=== PATIENT | female | born 1955 | race Hispanic/Latino ===

== ENCOUNTER → 2019-04-29 | Outpatient (CLI) | payer OTHER, MEDICARE ==
[~2019-04-29] MED LIST: ASPI-1197 PO; CALC500T13 PO; EMBREL INJ; LEFL10TA15 PO; LEVO125T11 PO; LOSA100T58 PO; NAPR500T6 PO
== END | disposition home or self-care (01) ==
LOC: SHCH 09:06
PROVIDERS: ATTEND Internal Medicine Cardiovascular Disease
DX: R06.00 Dyspnea, unspecified (principal)
CPT/HCPCS: 93306; 93356

== ENCOUNTER → 2019-05-03 | Outpatient (CLI) | payer OTHER, MEDICARE ==
[~2019-05-03] VITALS: Ht 149.9 cm; Wt 79.4 kg
[~2019-05-03] MED LIST changes: +REGADENOSON 0.4 MG/5 ML PF SYG IVP SCH
== END | disposition home or self-care (01) ==
LOC: SHCH 09:19
PROVIDERS: ATTEND Internal Medicine Cardiovascular Disease
DX: R06.00 Dyspnea, unspecified (principal); I25.89 Other forms of chronic ischemic heart disease
CPT/HCPCS: 78452; 93017; 96374; A9500 ×2; J2785

== ENCOUNTER 2019-07-03 10:00 | Inpatient (IN) | payer OTHER, MEDICARE ==
[~2019-07-03] VITALS: Ht 143.5 cm; Wt 77.7 kg
[~2019-07-03 10:00] MED LIST changes: -ASPI-1197 PO; -CALC500T13 PO; -EMBREL INJ; -LEFL10TA15 PO; -LEVO125T11 PO; -NAPR500T6 PO; -REGADENOSON 0.4 MG/5 ML PF SYG IVP SCH
[2019-07-05 14:58] VITALS: BP 122/52
[2019-07-05] MEDS ORDERED: OMEP40CA13 PO (15:15)
[2019-07-05] MEDS ORDERED: LENA10CA PO (15:15)
[2019-07-05] MEDS ORDERED: POTA-79 PO (15:15)
[2019-07-05] MEDS ORDERED: LEVO100T12 PO (15:15)
[2019-07-05] MEDS ORDERED: ACYC400T PO (15:15)
[2019-07-05] MEDS ORDERED: CARV3.12 PO (15:15)
[2019-07-05] MEDS ORDERED: ATOR10TA69 PO (15:15)
[2019-07-05] MEDS ORDERED: FURO40TA5 PO (15:15)
[2019-07-08] VITALS (22 sets, daily range): BP systolic 102–165; BP diastolic 43–71
[2019-07-08] MEDS: CEFAZOLIN SODIUM 1 GM VIAL IVP SCH ×4 (08:30→19:10)
[2019-07-08] MEDS ORDERED: LACTATED RINGERS 1000ML 1,000 ML IV ONE (08:34)
[2019-07-08] MEDS ORDERED: CEFAZOLIN SODIUM 1 GM VIAL ONE (12:25)
[2019-07-08] MEDS ORDERED: LIDOCAINE PF 2% 5ML ABBOJECT ONE (13:41)
[2019-07-08] MEDS ORDERED: KETAMINE 50MG/ML SYRINGE 50 MG/ML DISP.SYRIN IV ONE (13:41)
[2019-07-08] MEDS ORDERED: SUCCINYLCHOLINE CHLORIDE 20 MG/ML 10 ML VIAL ONE (13:41)
[2019-07-08] MEDS ORDERED: PROPOFOL 10 MG/ML 20ML VIAL IV ONE (13:41)
[2019-07-08] MEDS ORDERED: ROPIVACAINE 0.5% 5MG/ML 30ML IJ ONE (13:43)
[2019-07-08] MEDS ORDERED: MIDAZOLAM HCL 1 MG/ML 2ML VIAL ONE (13:44)
[2019-07-08] MEDS ORDERED: ROCURONIUM 10MG/1ML SYR 10 MG/ML ML ONE (14:06)
[2019-07-08] MEDS ORDERED: GLYCOPYRROLATE 1 MG/5 ML SYRINGE ONE (14:32)
[2019-07-08] MEDS ORDERED: FENTANYL CITRATE PF 50 MCG/1 ML 2ML VIAL ONE (15:39)
[2019-07-08] MEDS ORDERED: NEOSTIGMINE 5MG/5ML SYR IV ONE (17:51)
[2019-07-08] MEDS ORDERED: ONDANSETRON HCL 4 MG/2 ML VIAL ONE (17:51)
[2019-07-08] MEDS ORDERED: POTASSIUM CHLORIDE 20 MEQ ERTAB PO PRN (18:15)
[2019-07-08] MEDS ORDERED: POTASSIUM CHLORIDE 10% ELIXIR 20 MEQ/15 ML UDCUP PO PRN (18:15)
[2019-07-08] MEDS ORDERED: KETOROLAC TROMETHAMINE 15MG/ML IV PRN (18:15)
[2019-07-08] MEDS ORDERED: LIDOCAINE HCL-MPF 1% 2ML VIAL IV PRN (18:15)
[2019-07-08] MEDS ORDERED: POTASSIUM CHLORIDE 20MEQ/100ML 100 ML IV PRN (18:15)
[2019-07-08] MEDS ORDERED: TEMAZEPAM 15 MG CAPSULE PO PRN (18:15)
[2019-07-08] MEDS ORDERED: PROMETHAZINE HCL 25 MG/ML 1ML AMPULE IM PRN (18:15)
[2019-07-08] MEDS ORDERED: DiphenhydrAMINE HCL 50 MG/ML VIAL IVP PRN (18:15)
[2019-07-08] MEDS ORDERED: FERROUS FUMARATE 324 MG TABLET PO PRN (18:15)
[2019-07-08] MEDS ORDERED: OXYCODONE HCL 5 MG TAB PO PRN (18:15)
[2019-07-08] MEDS ORDERED: DIPHENHYDRAMINE HCL 25 MG CAPSULE PO PRN (18:15)
[2019-07-08] MEDS ORDERED: TRAMADOL HCL 50 MG TABLET PO PRN (18:15)
--- NOTE | 2019-07-08 19:15 | NUR ---
POST OP PATIENT ARRIVED TO ROOM 326 VIA BED AND WAS AAOX3 BUT DROWSY. DRESSING TO LEFT HIP WAS DRY AND INTACT HEMOVAC WAS IN PLACE WITH SANGUINOUS DRAINAGE NOTED. PATIENT HAD NO COMPLAINTS OR QUESTIONS AT THIS TIME.
[2019-07-08] MEDS: CARVEDILOL 3.125 MG TABLET PO SCH (21:21)
[2019-07-08] MEDS: SODIUM CHLORIDE 0.9% 1000ML 1,000 ML IV SCH (21:21)
[2019-07-08] MEDS: PREGABALIN 25 MG CAP PO SCH (21:21)
[2019-07-08] MEDS: PANTOPRAZOLE SODIUM 40 MG TABLET.DR PO SCH (21:21)
[2019-07-08] MEDS: ACYCLOVIR 200 MG CAPSULE PO SCH (21:21)
[2019-07-08] MEDS: CELECOXIB 200 MG CAP PO SCH (21:22)
[2019-07-08] MEDS: ACETAMINOPHEN EXTRA STRENGTH 500 MG TABLET PO SCH (21:23)
[2019-07-08] MEDS: OXYCODONE HCL 5 MG TAB PO PRN (21:23)
--- NOTE | 2019-07-08 23:00 | NUR ---
ACTIVITY PATIENT ASSISTED TO EDGE OF BED TO DANGLE LEGS PER PROTOCOL. PATIENT TOLERATED WELL AND WAS THEN ASSISTED BACK TO BED.
[2019-07-08] MEDS ORDERED: HYDROMORPHONE HCL 2 MG/ML VIAL IVP PRN (23:30)
[2019-07-09] VITALS (7 sets, daily range): BP systolic 115–161; BP diastolic 45–70
[2019-07-09] MEDS: OXYCODONE HCL 5 MG TAB PO PRN ×2 (01:19→09:19)
[2019-07-09] MEDS: ACETAMINOPHEN EXTRA STRENGTH 500 MG TABLET PO SCH ×3 (01:19→17:35)
[2019-07-09] MEDS ORDERED: HYDROMORPHONE 1 MG/1 ML AMP ONE ×2 (02:08→04:29)
[2019-07-09] MEDS: CEFAZOLIN SODIUM 1 GM VIAL IVP SCH (02:29)
[2019-07-09] MEDS: SODIUM CHLORIDE 0.9% 1000ML 1,000 ML IV SCH ×2 (04:13→10:23)
[2019-07-09 04:22] LABS: HEMATOCRIT 31.2 % (36-48); MEAN CORPUSCULAR HEMOGLOBIN 28.1 pg (27.0-33.0); MEAN CORPUSCULAR HGB CONC 32.7 g/dL (32.0-36.0); RED BLOOD CELL COUNT(AUTO) 3.63 MIL/uL (4.00-5.50); RED CELL DISTRIBUTION WIDTH 15.9 % (11.0-15.5)
[2019-07-09 04:40] LABS: CREATININE 0.9 mg/dL (0.5-1.5); POTASSIUM 3.9 mmol/L (3.5-5.1)
[2019-07-09] MEDS: LEVOTHYROXINE 100 MCG TABLET PO SCH (06:18)
[2019-07-09] MEDS: CELECOXIB 200 MG CAP PO SCH ×2 (09:11→22:39)
[2019-07-09] MEDS: ACYCLOVIR 200 MG CAPSULE PO SCH ×2 (09:11→22:39)
[2019-07-09] MEDS: PREGABALIN 25 MG CAP PO SCH ×2 (09:12→22:39)
[2019-07-09] MEDS: PANTOPRAZOLE SODIUM 40 MG TABLET.DR PO SCH ×2 (09:12→22:39)
[2019-07-09] MEDS: LOSARTAN 100 MG TABLET PO SCH (09:13)
[2019-07-09] MEDS: ATORVASTATIN CALCIUM 10 MG TABLET PO SCH (09:14)
[2019-07-09] MEDS: CARVEDILOL 3.125 MG TABLET PO SCH ×2 (09:15→22:39)
[2019-07-09] MEDS: POTASSIUM CHLORIDE 20 MEQ ERTAB PO SCH (09:15)
[2019-07-09] MEDS: FAMOTIDINE 20MG TAB 20 MG TAB PO SCH (09:15)
[2019-07-09] MEDS: CALCIUM CARBONATE 500 MG TABLET PO PRN (09:15)
[2019-07-09] MEDS: FUROSEMIDE 40 MG TABLET PO SCH (09:16)
[2019-07-09] MEDS: POLYETHYLENE GLYCOL 3350 17 GM POWD.PACK PO SCH (09:16)
[2019-07-09] MEDS: HEPARIN SODIUM 5000UNIT/ML 1ML VIAL SQ SCH ×2 (09:17→22:43)
--- NOTE | 2019-07-09 13:29 | NUR ---
DC PLAN VISITED WITH PATIENT. PATIENT LIVES WITH DAUGHTER. INDEPENDENT ABLE TO PERFORM ADL'S. PATIENT HAS NO SERVICES. WALKER AND BEDSIDE COMMODE AT HOME. SAID SHE IS TRYING TO GET DAUGHTER TO FIND A SMALLER WALKER BECAUSE SHE HAD ONE IN THE PAST AND GAVE IT TO HER SISTER. SHE LIKED THAT SIZE BETTER. GAVE CONSENT FOR [facility]. INFO SENT. SPOKE TO ELIAN SAID PATIENT IS ACCEPTED. LET NURSE KNOW. Addendum: 07/09/19 at 1332 by OFE MENDEZ RN CM Amended: Links added.
[2019-07-10] MEDS: ACETAMINOPHEN EXTRA STRENGTH 500 MG TABLET PO SCH ×3 (00:50→18:15)
[2019-07-10 04:00] VITALS: BP 132/51
[2019-07-10 04:32] LABS: HEMATOCRIT 27.2 % (36-48); MEAN CORPUSCULAR HEMOGLOBIN 28.3 pg (27.0-33.0); MEAN CORPUSCULAR HGB CONC 32.7 g/dL (32.0-36.0); MEAN CORPUSCULAR VOLUME 86.3 fL (79-99); RED BLOOD CELL COUNT(AUTO) 3.15 MIL/uL (4.00-5.50); RED CELL DISTRIBUTION WIDTH 16.2 % (11.0-15.5); WHITE BLOOD COUNT (AUTO) 4.7 K/uL (4.8-10.8)
[2019-07-10 04:46] LABS: CREATININE 0.8 mg/dL (0.5-1.5); POTASSIUM 3.7 mmol/L (3.5-5.1)
[2019-07-10] MEDS: CALCIUM CARBONATE 500 MG TABLET PO PRN ×2 (05:47→16:32)
[2019-07-10] MEDS: LEVOTHYROXINE 100 MCG TABLET PO SCH (05:47)
[2019-07-10 08:18] VITALS: BP 109/49
[2019-07-10] MEDS: POLYETHYLENE GLYCOL 3350 17 GM POWD.PACK PO SCH (08:31)
[2019-07-10] MEDS: ATORVASTATIN CALCIUM 10 MG TABLET PO SCH (08:31)
[2019-07-10] MEDS: HEPARIN SODIUM 5000UNIT/ML 1ML VIAL SQ SCH (08:31)
[2019-07-10] MEDS: ACYCLOVIR 200 MG CAPSULE PO SCH (08:31)
[2019-07-10] MEDS: FAMOTIDINE 20MG TAB 20 MG TAB PO SCH (08:33)
[2019-07-10] MEDS: FUROSEMIDE 40 MG TABLET PO SCH (08:33)
[2019-07-10] MEDS: PANTOPRAZOLE SODIUM 40 MG TABLET.DR PO SCH (08:33)
[2019-07-10] MEDS: POTASSIUM CHLORIDE 20 MEQ ERTAB PO SCH (08:33)
[2019-07-10] MEDS: LOSARTAN 100 MG TABLET PO SCH (08:33)
[2019-07-10] MEDS: CELECOXIB 200 MG CAP PO SCH (08:34)
[2019-07-10] MEDS: PREGABALIN 25 MG CAP PO SCH (08:34)
[2019-07-10] MEDS: CARVEDILOL 3.125 MG TABLET PO SCH (08:34)
[2019-07-10 11:20] VITALS: BP 157/50
[2019-07-10] MEDS ORDERED: ASPI-1005 PO (15:56)
[2019-07-10] MEDS ORDERED: HYDR-4457 PO (15:56)
[2019-07-10 16:52] VITALS: BP 137/57
--- NOTE | 2019-07-10 17:46 | NUR ---
DISCHARGE INSTRUCTIONS GIVEN AND EXPLAINED UTILIZING TEACH BACK METHOD, PT VERBALIZED UNDERSTANDING. DISCHARGE TO [facility]. [phone] REPORT GIVEN TO ONEAL SYED LVN. FOLLOW-UP APPOINTMENT WITH ON 07/31/19@ 8:30 A.M. IF YOU HAVE ANY QUESTIONS PLEASE CALL HIS OFFICE AT [phone] CALL 911 OR GO EMERGENCY ROOM IF YOU HAVE ANY CHEST PAIN/DISCOMFORT, SHORTNESS OF BREATH/DIFFICILTY BREATHING OR NEEDED. ACTIVITY: AMBULATE INSTRUCTED UP TOLERATED EXERCISE PROGRAM DIET: REGULAR DRESSING CHANGE: DAILY DRESSING CHANGE IF WOUND IS OOZING. CLEAN WOUND WITH BETADINE EVERY TIME DRESSING IS CHANGED. GAIT: GAIT TRAINING WITH WALKER OR CRUTCHES; WEIGHT BEARING TOLERATED QUADRICEP EXERCISE: QUADRICEP STRENGTH EXERCISES EXTREMITY ELEVATION: KEEP OPERATED EXTREMITY ELEVATED WHEN SEATED OR IN BED. DRESSING CHANGED PER MD ORDERS. EXPLAINED PROCEDURE OF CHANGING DRESSING, PT VERBALIZED UNDERSTANDING. REMOVED OLD DRESSING. OLD DRESSING W MINIMAL DRAINAGE. REMOVED HEMOVAC PER MD. INCISION DRY AND INTACT, NO REDNESS OR TENDERNESS. PAINTED BETADINE, COVERED WITH 4X4 GAUZE AND SECURED WITH MEDIPORE TAPE.
[2019-07-10] MEDS ORDERED: BISACODYL 5 MG TABLET.DR PO PRN (18:15)
--- NOTE | 2019-07-10 19:45 | NUR ---
DISCHARGE DISCHARGE HOME VIA WHEELCHAIR WITH DAUGHTER
[2019-07-11] MEDS ORDERED: BISACODYL 10 MG SUPP.RECT RC PRN (18:15)
== END 2019-07-10 19:45 | disposition home health service (06) | DRG 464 ==
LOC: EDSTATUS 10:00 → DAHIP 07-08 07:36 → 3DH 07-08 20:31
PROVIDERS: ADMIT Orthopaedic Surgery; ATTEND Orthopaedic Surgery
PROC: 3E0T3BZ Introduction of Anesthetic Agent into Peripheral Nerves and Plexi, Percutaneous Approach (ICD-10-PCS; 2019-07-08)
PROC: 0QS904Z Reposition Left Femoral Shaft with Internal Fixation Device, Open Approach (ICD-10-PCS; principal; 2019-07-08 13:43)
PROC: 0QU Lower Bones, Supplement (ICD-10-PCS; 2019-07-08 13:43)
PROC: 0SPB0JZ Removal of Synthetic Substitute from Left Hip Joint, Open Approach (ICD-10-PCS; 2019-07-08 13:43)
DX: M97.02XA Periprosthetic fracture around internal prosthetic left hip joint, initial encounter (principal); D62 Acute posthemorrhagic anemia; E03.9 Hypothyroidism, unspecified; I10 Essential (primary) hypertension; Z96.651 Presence of right artificial knee joint; Z90.710 Acquired absence of both cervix and uterus; Z88.5 Allergy status to narcotic agent; Z91.81 History of falling; Z83.3 Family history of diabetes mellitus
CPT/HCPCS: 36415; 73552; 80048; 85027; 86850; 86900; 86901; 88300; 97039; C1713; G0378; J0330; J0690; J1170; J1644; J1885; J2001; J2250; J2405; J2704; J2710; J2795; J3010; J3490; J7030; J7120

== ENCOUNTER 2019-12-25 19:08 | Emergency (ER) | payer OTHER, MEDICARE ==
[~2019-12-25 19:08] MED LIST changes: +ACYC400T PO; +ASPI-1005 PO; +ATOR10TA69 PO; +CARV3.12 PO; +FURO40TA5 PO; +HYDR-4457 PO; +LENA10CA PO; +LEVO100T12 PO; +OMEP40CA13 PO; +POTA-79 PO
[2019-12-25] MEDS ORDERED: KETOROLAC TROMETHAMINE 30MG/ML ONE (20:36)
[2019-12-25] MEDS ORDERED: ONDANSETRON ODT 4 MG TAB ONE (23:07)
[2019-12-25] MEDS ORDERED: HYDROCODONE/ACETAMINOPHEN 5/325 MG TAB ONE (23:07)
== END 2019-12-25 23:51 | disposition home or self-care (01) ==
LOC: EDH 19:08
DX: S52.124A Nondisplaced fracture of head of right radius, initial encounter for closed fracture (principal); I10 Essential (primary) hypertension; E78.00 Pure hypercholesterolemia, unspecified; Z90.710 Acquired absence of both cervix and uterus; Z98.890 Other specified postprocedural states; W01.0XXA Fall on same level from slipping, tripping and stumbling without subsequent striking against object, initial encounter; Y93.01 Activity, walking, marching and hiking; Y92.89 Other specified places as the place of occurrence of the external cause; Y99.8 Other external cause status
CPT/HCPCS: 29105; 73070; 73090; 96372; 99284; J1885

== ENCOUNTER → 2020-05-14 | Outpatient (CLI) | payer OTHER, MEDICARE | END | disposition home or self-care (01) | LOC: OIH 09:23 | PROVIDERS: ATTEND Internal Medicine | DX: M19.041 Primary osteoarthritis, right hand (principal); M19.042 Primary osteoarthritis, left hand; M85.842 Other specified disorders of bone density and structure, left hand; M85.841 Other specified disorders of bone density and structure, right hand ==

== ENCOUNTER → 2021-11-24 | Outpatient (CLI) | payer OTHER, MEDICARE ==
[~2021-11-24] MED LIST changes: -ACYC400T PO; +ACYC400T20 PO; -OMEP40CA13 PO; +OMEP40CA21 PO
== END | disposition home or self-care (01) ==
LOC: RAH 12:39
PROVIDERS: ATTEND Internal Medicine
DX: R60.0 Localized edema (principal)
CPT/HCPCS: 93971

== ENCOUNTER → 2023-12-20 | Outpatient (CLI) | payer OTHER, MEDICARE ==
[~2023-12-20] MED LIST changes: -LOSA100T58 PO; +LOSA100T59 PO; +POTA-364 PO; -POTA-79 PO
--- NOTE | 2023-12-21 08:34 | HMCSR ---
APPROVED REPORT Bilateral Lower Extremity Venous Study for DVT., Venous Competence.Study performed with patient in up right position or in reverse Trendelenburg. Vein Imaging CFV (R): Normal flow, augmentation and compression. No evidence of DVT, Diameter 10.2 mm SFJ (R): Normal flow, augmentation and compression. No evidence of DVT. FEM (R): Normal flow, augmentation and compression. No evidence of DVT. POP (R): Normal flow, augmentation and compression. No evidence of DVT. DFV (R): Normal flow, augmentation and compression. No evidence of DVT, 539 ms of DVR. PTV (R): Normal flow, augmentation and compression. No evidence of DVT. Peroneals (R): Normal flow, augmentation and compression. No evidence of DVT. GAS (R): Normal flow, augmentation and compression. No evidence of DVT. CFV (L): Normal flow, augmen tation and compression. No evidence of DVT, Diameter 12.5 mm SFJ (L): Normal flow, augmentation and compression. No evidence of DVT. FEM (L): Normal flow, augmentation and compression. No evidence of DVT, 333 ms of DVR. POP (L): Normal flow, augmentation and compression. No evidence of DVT. DFV (L): Normal flow, augmentation and compression. No evidence of DVT. PTV (L): Normal flow, augmentation and compression. No evidence of DVT. Peroneals (L): Normal flow, augmentation and compression. No evidence of DVT. GAS (L): Normal flow, augmentation and compression. No evidence of DVT. Technologist Impression The deep veins of the bilateral lower extremities appear patent and compressible without evidence of thrombus. Deep venous reflux noted. Pulsatile waveforms noted in the left common femoral vein. RGSV Junction 6.1 mm 300 ms Mid thigh 4.0 mm 350 ms Knee 3.1 mm 417 ms Mid- calf 2.4 mm 389 ms RSSV Prox 1.6 mm 0 ms Mid 1.6 mm 0 ms LGSV Junction 5.2 mm 0 ms Mid thigh 3.7 mm 428 ms Knee 3.3 mm 0 ms Mid-calf 2.3 mm 211 ms LSSV Prox 1.6 mm 0 ms Mid 1.2 mm 0 ms
== END | disposition home or self-care (01) ==
LOC: SHCH 10:49
PROVIDERS: ATTEND Internal Medicine Cardiovascular Disease
DX: I87.2 Venous insufficiency (chronic) (peripheral) (principal)
CPT/HCPCS: 93970